=== PATIENT | male | born 1950 | race Caucasian/White ===

== ENCOUNTER → 2023-07-25 10:54 | Outpatient (REF) | payer MEDICARE, BC, SELFPAY | LOC: PAVMRI 10:54 | PROVIDERS: ATTENDING PHYSICIAN Orthopaedic Surgery | DX: M25.559 Pain in unspecified hip (principal) | CPT/HCPCS: 73721 ==

== ENCOUNTER 2024-03-25 18:36 | Emergency (ER) | payer MEDICARE, BC, SELFPAY ==
[2024-03-25 18:52] VITALS: BP 158/82
[2024-03-25 19:12] LABS: % Basophils 0.5 % (0-2); % Eosinophils 0.2 % (0-6); % Immature Granulocytes 0.2 % (0-0.5); % Lymphocytes 23.6 % (20.5-51.1); % Monocytes 11.5 % (1.7-9.3); Absolute Monocytes 0.5 10^3/uL (0.1-0.6); Absolute Neutrophils 2.8 10^3/uL (1.4-6.5); Hematocrit 43.2 % (39.0-52.0); Hemoglobin 14.7 g/dL (13.0-18.0); Mean Corpuscular Hgb 29.3 pg (27.0-31.0); Mean Corpuscular Volume 86.2 fL (80.0-94.0); Mean Platelet Volume 10.8 fL (7.4-10.4); Nucleated Red Blood Cells % 0 % (-); Platelet Count 134 10^3/uL (130-400); Red Blood Cell Count 5.01 10^6/uL (4.70-6.10); Red Cell Dist. Width 13.6 % (11.5-14.5); White Blood Cell Count 4.4 10^3/uL (4.8-10.8)
[2024-03-25 19:21] LABS: ALT (SGPT) 35 U/L (0-50); AST (SGOT) 33 U/L (17-59); Albumin 4.1 g/dl (3.5-5.0); Alkaline Phosphatase 48 U/L (38-126); Blood Urea Nitrogen 18 mg/dl (9-20); Calcium 9.2 mg/dl (8.4-10.2); Carbon Dioxide 28 mmol/L (22-30); Chloride 98 mmol/L (98-107); Glucose 145 mg/dl (70-99); Potassium 3.9 mmol/L (3.5-5.1); Sodium 137 mmol/L (135-145); Total Bilirubin 0.9 mg/dl (0.2-1.3); Total Protein 6.3 g/dl (6.3-8.2); eGFR > 60.00
[2024-03-25] MEDS: NSS 500 IV (20:35)
[2024-03-25] MEDS: LOPRESSOR 2.5 MG IV (21:40)
[2024-03-25 21:41] LABS: TSH Reflex To Free T4 1.73 uIU/ml (0.47-4.68)
[2024-03-25 21:43] VITALS: BP 143/111
[2024-03-25 22:00] VITALS: BP 154/110
--- NOTE | 2024-03-25 22:05 | ED.GENMED ---
History of Present Illness
General
Chief Complaint: Heart Rate Problem
Time Seen by Provider: 03/25/24 19:51
History of Present Illness
History of Present Illness:
Patient presented to urgent care for diarrhea. 1 loose episode per week. He was noted to be in atrial fibrillation there. No chest pain shortness of breath syncope near syncope etc. Mildly fatigued but he thought this was from the diarrhea.
History of cardiac ablation. Patient is faithful with his Eliquis.
Past History
Past History
ED Past Medical History: Arrthythmia, HTN and Other
ED Past Surgical History: Cardiac (Cardiac ablation)
Social History
Tobacco: Former smoker (quit in 1999)
Alcohol: None
Drug: None
Personal:
Living: with family
Employment: Employed (truck outside parts salesman)
Family History
Family History: Other (Noncontributory)
Phy Exam
Physical Exam
Physical Exam:
GENERAL: Alert and oriented in no apparent distress
EYE: Orbits normal.
NECK: Supple. No thyroid palpable
ENT: Pharynx without erythema
CARDIAC: Irregular irregular. Tachycardic.
LUNGS: Clear breath sounds,normal
ABDOMEN: Soft, without focal tenderness or distention
NEUROLOGICAL: Alert and oriented , grossly non-focal
SKIN: Warm and dry, no rash or lesion, no discoloration, skin intact.
MUSCULOSKELETAL: No edema,no deformity.Good color
PSYCH: Normal and appropriate interaction.
Course
Orders/Labs/Results
Orders:
Orders
03/25/24 18:39
Electrocardiogram (*1) Urgent
Reason for Study: Chest Pain
EKG- Treatment ONCE
03/25/24 19:00
Complete Blood Count/With Diff Urgent
Comprehensive Metabolic Panel Urgent
TSH Reflex To Free T4 Urgent
Comment: ADDON
03/25/24 20:06
0.9% Sodium Chloride 500 ml [Nss] 500 ml IV BOLUS
03/25/24 20:07
Add On- LAB Urgent
Tests Added?: tsh reflex t4
03/25/24 20:32
STOOL [C difficile Antigen & Toxins] Urgent
KATELIN Source: Feces/Stool
Specimen Description:
Date Specimen was Collected: 03/25/24
Time Specimen was Collected: 20:31
Stool Culture Urgent
KATELIN Source: Feces/Stool
Specimen Description:
Date Specimen was Collected: 03/25/24
Time Specimen was Collected: 20:31
03/25/24 21:25
Metoprolol [Lopressor] 2.5 mg IV NOW STA
03/25/24 22:04
Metoprolol [Lopressor] 5 mg IV NOW STA
Abnormal Lab Results
03/25/24
19:00
WBC 4.4 L 10^3/uL
(4.8-10.8)
MPV 10.8 H fL
(7.4-10.4)
Absolute Lymphs (auto) 1.0 L 10^3/uL
(1.2-3.4)
Monocytes % 11.5 H %
(1.7-9.3)
Glucose 145 H mg/dl
(70-99)
03/25/24 19:00
03/25/24 19:00
Vital Signs
Initial and Last Documented VS:
Initial Vital Signs
Temp Pulse Resp Pulse Ox
98.7 F 141 22 94
03/25/24 18:44 03/25/24 18:44 03/25/24 18:44 03/25/24 18:44
Last Documented Vital Signs
Temp Pulse Resp BP Pulse Ox
98.7 F 102 21 154/110 94
03/25/24 18:44 03/25/24 22:45 03/25/24 22:45 03/25/24 22:00 03/25/24 18:44
MDM/Problems Addressed
Differential Diagnosis Includes:
Discussed with cardiology. Cardioversion versus rate control and close follow-up. They would prefer rate control and follow-up. They recommend increasing his metoprolol to 100 twice daily. We did give him a small IV dose here. He is remained
clinically stable. Diarrhea is mild. Stool culture pending.
*Critical Care Note
Total Time (30-74mins, 75-104mins- exclusive of procedures): 35
Data Reviewed
Review of Other/Old Records Reveals: Labs, Records and Testing
Update Note
Update Note:
2129... Discussed with cardiology. Although cardioversion is not unreasonable they recommended holding off. Will give some Lopressor to rate control. Started very low at 2.5 mg. Will give 5 mg IV now. Plan is discharge with increasing his oral
metoprolol to 100 twice daily. Follow-up with cardiology. As for the diarrhea stool culture was sent. Medically stable. No indication for antibiotics or admission. No indication for radiologic testing. Abdomen is nontender
2300... Patient's blood pressures were reading very high although when checked manually especially with the atrial fibrillation were much better. When switching to a larger cuff last blood pressure was 156/86. Heart rate running right around 100.
Medically stable for discharge to follow-up
ED Attending Note
-
Portions of this chart may have been created with voice recognition software.� Occasional wrong word or��sound alike� substitutions may have occurred due to the inherent limitations of voice recognition software.
Discharge Plan
Departure
Patient Disposition: Home (Routine Discharge)
Date of Disposition: 03/25/24
Time of Disposition: 23:03
Patient with high blood pressure during this ER visit?: Yes
Discharge Problem:
Atrial fibrillation/RVR, Diarrhea
Instructions: Atrial Fibrillation (DC), Acute Diarrhea, BLOOD PRESSURE
Prescriptions:
No Action
hydrochlorothiazide 12.5 MG capsule
25 mg PO DAILY
candesartan [Atacand] 32 MG tablet
32 mg PO DAILY
doxazosin 2 MG tablet
2 mg PO DAILY
Patient Comments:
2 mg in am 4mg in pm
apixaban [Eliquis] 5 MG tablet
5 mg PO BID
multivitamin [Daily Multiple] 1 EACH tablet
1 ea PO DAILY
docosahexaenoic acid-epa 1 CAP capsule
3 cap PO DAILY
metoprolol succinate 50 MG tablet extended release 24 hr
50 mg PO BID
latanoprostene bunod [Vyzulta] 5 ML drops
5 ml OP DAILY
doxazosin 2 MG tablet
4 mg PO QPM
hydrocodone-acetaminophen 1 TABLET tablet
1 - 2 tab PO Q4HPRN PRN (Reason: moderate to severe pain) Qty: 12 0RF
Referrals:
NONE,* [Family Provider] -
Hugo Raymond MD [Active] - Tomorrow
Activity Restrictions/Additional Instructions:
Increase your metoprolol to 100 mg twice a day
Make sure you continue your other regular medications and blood thinners
Stool specimen should be back in 2 to 3 days
Call your supervisor functional testing first thing in the morning for close follow-up
Interventions
Interventions:
*Risk Screen - Suicide Last Done: 03/25/24 18:44
*General Assessment Last Done: 03/25/24 18:44
*Neglect/Abuse Screening Last Done: 03/25/24 18:44
*ED COVID-19 Vaccine History Last Done: 03/25/24 18:44
ED- Cardiac Assessment Last Done: 03/25/24 20:51
ED- Pulmonary Assessment Last Done: 03/25/24 20:51
Discharge Date and Time
Print Language: BERMUDIAN
[2024-03-25] MEDS: LOPRESSOR 5 MG IV (22:07)
[2024-03-25 23:00] VITALS: BP 151/86
== END 2024-03-25 23:17 | disposition home or self-care (01) ==
LOC: EMR 18:36
PROVIDERS: Emergency Medicine; EMERGENCY PHYSICIAN Emergency Medicine
DX: I48.91 Unspecified atrial fibrillation (principal); R19.7 Diarrhea, unspecified; I11.9 Hypertensive heart disease without heart failure; Z79.01 Long term (current) use of anticoagulants; Z87.891 Personal history of nicotine dependence
CPT/HCPCS: 99283; 96374; 96375; 96361; 80053; 84443; 85025; 87045; 87046; 87324; 87427; 87449; 93005

== ENCOUNTER → 2024-03-28 08:27 | Outpatient (REF) | payer MEDICARE, BC, SELFPAY ==
[2024-03-28 10:37] LABS: Glycohemoglobin (HgbA1c) 5.8 % (4.0-5.6)
[2024-03-28 11:23] LABS: HDL Cholesterol 45 mg/dl; LDL Cholesterol, Calculated 77 mg/dl; Total Cholesterol 143 mg/dl (50-199); Triglyceride 109 mg/dl (10-149); Very Low Density Lipoprotein 21 mg/dl (0-30)
== END ==
LOC: REG 08:27
PROVIDERS: ATTENDING PHYSICIAN Internal Medicine
DX: I10 Essential (primary) hypertension (principal); E78.00 Pure hypercholesterolemia, unspecified; K37 Unspecified appendicitis
CPT/HCPCS: 36415; 80061; 83036

== ENCOUNTER → 2024-04-02 07:01 | Day surgery (SDC) | payer MEDICARE, BC, SELFPAY ==
[2024-04-02 08:01] VITALS: BMI 33.4
--- NOTE | 2024-04-02 09:07 | ITS.CL.CARDI ---
[employer] - Cardioversion
Cardioversion
Procedure Report:
Date of Procedure: 04/02/2024.
Procedure: Cardioversion.
Indication: Symptomatic atrial fibrillation.
Performing Physician: Shayna Wang MD
Technique: The patient was brought to the holding area. Signed informed consent was obtained. A time out was called and performed. The patient was sedated by a member of the anesthesia service. Anticoagulation status was reviewed and was
appropriate. R-2 pads were placed anteriorly and posteriorly. It took 3 shocks to restore normal sinus rhythm. The first shock was delivered at 200 J of synchronized biphasic energy, then 300 J of synchronized biphasic energy, and finally 360 J of
biphasic energy which was successful at restoring rhythm. There were no complications.
Conclusion: Uncomplicated cardioversion from atrial fibrillation to sinus rhythm.
Recommendation: Routine post cardioversion care. Continue terminal gauger supervisor anticoagulation.
cc: A[place]
== END ==
LOC: CATH 07:01
PROVIDERS: ATTENDING PHYSICIAN Internal Medicine Cardiovascular Disease; OTHER PHYSICIAN Internal Medicine
DX: I48.91 Unspecified atrial fibrillation (principal); Z79.01 Long term (current) use of anticoagulants; I10 Essential (primary) hypertension
CPT/HCPCS: 92960; 93005